=== PATIENT | male | born 1955 | race Caucasian/White ===

== ENCOUNTER 2020-03-02 09:55 | Day surgery (SDC) | payer OTHER ==
--- OUTSIDE RECORDS SUMMARY | 2020-03-02 10:04 | XMS REPORT | Continuity of Care Document ---
:1955 Author Organization [facility] t Address [address] [place] [address] Care Team Providers Name Role Phone Kacie VALERA Primary Care Physician [place] Attending Clinician Unavailable Antony Weber MD Attending Clinician Abigail Wiley MD Attending Clinician Payers Payer Name Policy Type Policy Effective Date Expiration Date Sour ce Number MEDICAREMEDICARE PART [id number] 2015 Ho rae Wade AND 00:00:00 [facility] [id number] [place] Problems This patient has no known problems. Allergies, Adverse Reactions, Alerts This patient has no known allergies or adverse reactions. Family History Family Member Diagnosis Comments Start Date Stop Date Source Natural brother Diabetes [facility] ethodist Natural father Heart disease [place] [facility] Natural father Stroke [facility] thodist Grandchild Kidney disease [facility] thodist Natural mother Cancer [place] Me thodist Social History Social Habit Start Date Stop Date Quantity Comments Source History of tobacco 1971-04-27 Current every day [place] use 00:00:00 smoker [facility] Sex Assigned At M [place] [facility] Exposure to Not sure [place] SARS-CoV-2 (event) Method ist Cigarettes smoked 2020-02-17 2020-02-17 [place] current (pack per 00:00:00 00:00:[address] day) - Reported Cigarette 2020-02-17 2020-02-17 [place] pack-years 00:00:00 00:00:00 [facility] Tobacco use and 2020-02-17 2020-02-17 Never used [facility] exposure 00:00:00 00:00:00 [facility] Alcohol intake 2020-02-17 2020-02-17 Ex-drinker [place] 00:00:00 00:00:00 (finding) [facility] Tobacco Comment 2020-02-17 2020-02-17 trying to quit [place] on 00:00:00 00:00:00 sometimes down to [facility] 1/4 pack a day then backslide Smoking Status Start Date Stop Date Source Current every day smoker 2020-02-17 00:00:00 Jadiel vásquez [facility] Medications This patient has no known medications. Vital Signs Vital Name Observation Time Observation Value Comments Source Systolic blood 2020-02-17 09:28:00 135 mm[Hg] [place] [facility] pressure Diastolic blood 2020-02-17 09:28:00 75 mm[Hg] [place] [facility] pressure Heart rate 2020-02-17 09:28:00 88 /min [place] [facility] Body height 2020-02-17 09:28:00 162.6 cm [place] [facility] Body weight 2020-02-17 09:28:00 63.504 kg [place] [facility] BMI 2020-02-17 09:28:00 24.03 kg/m2 [place] [facility] Procedures Procedure Date / Time Performed Performing Clinician [facility] e [facility] ABD/PELVIC EXTERNAL 2019-11-21 09:36:00 Casey Wiley on [facility] STUDY XR SPINE EXTERNAL 2019-11-16 13:32:00 Luis Angel Weber [place] [facility]ist STUDY Antony XR SPINE EXTERNAL 2019-11-16 13:29:47 Luis Angel Weber [place] [facility] STUDY Antony XR SPINE EXTERNAL 2019-11-16 11:08:00 Casey Wiley [place] [facility] STUDY XR SPINE EXTERNAL 2019-11-16 10:59:00 Casey Wiley [place] [facility] STUDY MRI SPINE EXTERNAL 2019-10-20 09:29:00 Casey Wiley ethodist STUDY MRI SPINE EXTERNAL 2019-10-20 09:07:00 Casey Wiley ethodist STUDY Plan of Care Planned Activity Planned Date Details Comments Source Future Scheduled 2005 COLONOSCOPY SCREENING [place] ra[place] [facility] Test 00:00:00 [code = COLONOSCOPY SCREENING] Future Scheduled 2005 SHINGLES VACCINES [place] [facility] Test 00:00:00 (#1) [code = SHINGLES VACCINES (#1)] Encounters Start End Encounter Admission Attending Care Care Encounter Source Date/Time Date/Time Type Type Clinicians Facility Department ID 2020-02-17 2020-02-17 Outpatient GEORGIE [facility] [id number] [place] 00:00:00 00:00:00 LUIS ANGEL [address] 2020-02-17 2020-02-17 Outpatient GEORGIE [facility] [id number] [place] 00:00:00 00:00:00 LUIS ANGEL [address] 2020-02-17 2020-02-17 Outpatient GEORGIE [facility] [id number] [place] 00:00:00 00:00:00 LUIS ANGEL [address] 2019-12-06 2019-12-06 Outpatient KAYLA, CASEY [facility] [id number] [place] 00:00:00 00:00:[address] 2019-12-06 2019-12-06 Outpatient KAYLA, CASEY [facility] [id number] [place] 00:00:00 00:00:[address] 2019-12-06 2019-12-06 Outpatient KAYLA, CASEY [facility] [id number] [place] 00:00:00 00:00:[address] 2019-12-06 2019-12-06 Outpatient KAYLA, CASEY [facility] [id number] [place] 00:00:00 00:00:[address] 2019-11-11 2019-11-11 Outpatient KAYLA, CASEY [facility] [id number] [place] 00:00:00 00:00:[address] 2019-11-11 2019-11-11 Outpatient KAYLA, CASEY [facility] [id number] [place] 00:00:00 00:00:[address] 2019-11-11 2019-11-11 Outpatient KAYLA, CASEY [facility] [id number] [place] 00:00:00 00:00:[address] 2019-11-11 2019-11-11 Outpatient KAYLA, CASEY [facility] [id number] [place] 00:00:00 00:00:[address] 2019-11-11 2019-11-11 Outpatient KAYLA, CASEY [facility] [id number] [place] 00:00:00 00:00:[address] Results Test Description Test Time Test Comments Results Result Sour e Comments XR Spine External 2020-02-17 This exam was not [facility] Study 13:32:12 acquired at a [facility] facility and has not been interpreted by a [facility] Provider. The exam was imported into our imaging system. CT Abd/Pelvic 2019-12-06 This exam was not [facility] External Study 13:41:[address] [facility] facility and has not been interpreted by a [facility] Provider. The exam was imported into our imaging system. MRI Spine 2019-11-11 This exam was not [place] External Study 11:48:39 acquired [address] [facility] facility and has not been interpreted by a [facility] Provider. The exam was imported into our imaging system.
--- OUTSIDE RECORDS SUMMARY | 2020-03-02 10:04 | XMS REPORT | Clinical Summary ---
:1955 Author Organization [facility] Address [address] [place] [address] Care Team Providers Name Role Phone MD Kacie Primary Care Provider Allergies Not on File Medications No known medications Active Problems No known active problems Encounters Date Type Specialty Care Team Description 02/20/2020 Orders Only Orthopedic Surgery Toribio Schafer 02/17/2020 Hospital Encounter Radiology Luis Angel Weber MD 02/17/2020 Hospital Encounter Radiology Luis Angel Weber MD 02/17/2020 Office Visit Orthopedic Surgery Luis Angel Weber Cervic algia (Primary Dx); MD Antony Chronic SI rosalio nt pain; Sacroiliac pain ; Lumbosacral rad iculitis 02/17/2020 Travel 01/13/2020 Travel 12/08/2019 Orders Only Casey Johnson, Spinal steno sis in MD cervical region (Primary Dx) 12/06/2019 Hospital Encounter Casey Garcia MD 12/06/2019 Hospital Encounter Casey Garcia MD 12/06/2019 Hospital Encounter Casey Garcia MD 12/06/2019 Office Visit Neurosurgery Casey Wiley, Cervical doc nosis of MD spine (Primary Dx) 12/06/2019 Travel 11/21/2019 Travel 11/11/2019 Hospital Encounter Casey Garcia MD 11/11/2019 Hospital Encounter Casey Garcia MD 11/11/2019 Hospital Encounter Casey Garcia MD 11/11/2019 Hospital Encounter Casey Garcia MD 11/11/2019 Office Visit Neurosurgery Casey Wiley, Cervical doc nosis of spine (Primary Dx); MD 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 ins. phyllis ia/mesh/mesh infection and re moval/colon resec ORTHOPEDIC SURGERY 08/25/2012 - 09/24/2012 [place] pic surgery due to torn labrum righ t hip SPINE SURGERY 11/05/2019 complete revisio n 01/2020 Medical History Medical History Date Comments Arthritis Asthma COPD (chronic obstructive pulmonary disease) (HCC) GERD (gastroesophageal reflux disease) Osteoporosis Stroke (HCC) GI bleed Family History Medical History Relation Name Comments Diabetes Brother Jamel Arriaga at 69 ye ars old Heart disease Father Zac Arriaga Jr A-fib Stroke Father Zac Arriaga Jr Acute CVA/ter mode Kidney disease Grandchild Zac Arriaga V acute IGA/kidne y transplant Cancer Mother Barbara Arriaga Acute liver/panc reatic Relation Name Status Comments Brother Jamel Arriaga Father Zac WadeEster Arriaga Jr Grandchild Zac Arriaga V Mother Barbara Arriaga Social History Tobacco Use Types Packs/Day Years Used Date Current Every Day Smoker Cigarettes 1 48 Sta rted: 04/27/1971 Smokeless Tobacco: Never Used Comments: trying to quit sometimes down to 1/4 pack a day then backslide Alcohol Use Drinks/Week oz/Week Comments Not Currently 0 Glasses of wine 0.0 0 Cans of beer 0 Shots of liquor 0 Standard drinks or equivalent Sex Assigned at Date Recorded Male 12/06/2019 4:09 PM CDT COVID-19 Exposure Response Date Recorded In the last month, have you been in contact with No / Unsure 02/17/2020 9:23 AM CDT someone who was confirmed or suspected to have Coronavirus / COVID-19? Last Filed Vital Signs Vital Sign Reading Time Taken Comments Blood Pressure 135/75 02/17/2020 9:28 AM CDT Pulse 88 02/17/2020 9:28 AM CDT Temperature - - Respiratory Rate - - Oxygen Saturation - - Inhaled Oxygen Concentration - - Weight 63.5 kg (140 lb) 02/17/2020 9:28 AM CDT Height 162.6 cm (5' 4") 02/17/2020 9:28 AM CDT Body Mass Index 24.03 02/17/2020 9:28 AM CDT Plan of Treatment Health Maintenance Due Date Last Done Comments COLONOSCOPY SCREENING 2005 SHINGLES VACCINES (#1) 2005 INFLUENZA VACCINE Completed 12/29/2019 Procedures Procedure Name Priority Date/Time Associated Diagnosis Comme nts CT ABD/PELVIC Routine 11/21/2019 9:36 AM Results for this EXTERNAL STUDY CDT procedure are in the results section. XR SPINE EXTERNAL Routine 11/16/2019 1:32 PM Res ults for this STUDY CDT procedure are i n the results section. XR SPINE EXTERNAL Routine 11/16/2019 1:29 PM Res ults for this STUDY CDT procedure are i n the results section. XR SPINE EXTERNAL Routine 11/16/2019 11:08 AM Res ults for this STUDY CDT procedure are i n the results section. XR SPINE EXTERNAL Routine 11/16/2019 10:59 AM Res ults for this STUDY CDT procedure are i n the results section. MRI SPINE EXTERNAL Routine 10/20/2019 9:29 AM Re sults for this STUDY CDT procedure are i n the results section. MRI SPINE EXTERNAL Routine 10/20/2019 9:07 AM Re sults for this STUDY CDT procedure are i n the results section. after 03/02/[address] Abd/Pelvic External Study (11/21/2019 9:36 AM CDT) Specimen Narrative Performed At This exam was not acquired at a Method[facility] t facility and has not been [facility] interpreted by a Religion Provider. T he exam was imported into our imaging system. Performing Organization Address City/[facility]/ZIP Code Phon e Number [facility] [address] [place] [address] XR Spine External Study (11/16/2019 1:32 PM CDT)Only the most recent of4 resultswithin the time period is included. Specimen Narrative Performed At This exam was not acquired at a Methodis t facility and has not been [facility] interpreted by a Religion Provider. T he exam was imported into our imaging system. Performing Organization Address City/State/ZIP Code Phon e Number [facility] [address] [place] [address] MRI Spine External Study (10/20/2019 9:29 AM CDT)Only the most recent of2 resultswithin the time period is included. Specimen Narrative Performed At This exam was not acquired at a Methodis t facility and has not been [facility] interpreted by a Religion Provider. T he exam was imported into our imaging system. Performing Organization Address City/State/ZIP Code Phon e Number [facility] [address] [place] [address] after 03/02/2019 Insurance Payer Benefit Plan / Subscriber ID Effective Dates Phone Addre ss Type Group MEDICARE MEDICARE PART A [id number] 2015-Present [place] B Advance Directives For more information, please contact: [phone] Type Date Recorded Patient Graduate Teaching Associate Explanati on Advance Directives, Living Will and Medical Power of It Application Administrator
[2020-03-02] MEDS ORDERED: Zoledronic Acid/Mannitol/Water 5 MG/100 ML INFUS.BOT IV ONE (10:15)
[2020-03-02 10:25] VITALS: BP 143/63; TEMP 98; O2SAT 97; BMI 24.0
== END 2020-03-02 10:55 | disposition home or self-care (01) ==
LOC: DS 09:55
PROVIDERS: ATTEND Internal Medicine
DX: M81.0 Age-related osteoporosis without current pathological fracture (principal); R13.10 Dysphagia, unspecified
CPT/HCPCS: 96365; J3489

== ENCOUNTER 2021-05-27 09:14 | Inpatient (IN) | payer OTHER ==
--- OUTSIDE RECORDS SUMMARY | 2021-05-27 09:16 | XMS REPORT | Continuity of Care Document ---
:1955 Author Organization [facility] t Address [address] [place] [address] Care Team Providers Name Role Phone Frank HOUSER Attending Clinician Unavailable GEORGIE Attending Clinician Unavailable KAYLA Attending Clinician Unavailable Payers Payer Name Policy Type Policy Number Effective Date Expiration Date S jenni MEDICARE PART A [id number] 2015 \T\ B 00:00:00 Problems This patient has no known problems. Allergies, Adverse Reactions, Alerts Allergy Allergy Status Severity Reaction(s) Onset Inactive Treating Comm ents Source Name Type Date Date Clinician NO KNOWN Drug Active [facility] ALLERGIE Class [facility] Medications This patient has no known medications. Procedures This patient has no known procedures. Encounters Start End Encounter Admission Attending Care Care Encounter Source Date/Time Date/Time Type Type Clinicians Facility Department ID 2020-07-09 2020-07-09 [id number] [facility] 14:50:00 14:50:00 KYARA [facility] 2020-02-17 2020-02-17 Outpatient [facility] [id number] [place] 00:00:00 00:00:[address] FRANKI [address] 2020-02-17 2020-02-17 [facility] [id number] [place] 00:00:00 00:00:00 FRANKI [address] 2020-02-17 2020-02-17 [facility] [id number] [place] 00:00:00 00:00:00 FRANKI [address] 2019-12-06 2019-12-06 Outpatient KAYLATHU BYNUM [facility] [id number] [place] 00:00:00 00:00:[address] 2019-12-06 2019-12-06 Outpatient KAYLA, THU [facility] [id number] [place] 00:00:00 00:00:[address] 2019-12-06 2019-12-06 Outpatient KAYLA, [facility] [id number] [place] 00:00:00 00:00:[address] 2019-12-06 2019-12-06 Outpatient KAYLA, THU [facility] [id number] [place] 00:00:00 00:00:[address] 2019-11-11 2019-11-11 Outpatient KAYLA, [facility] [id number] [place] 00:00:00 00:00:[address] 2019-11-11 2019-11-11 Outpatient KAYLA, [facility] [id number] [place] 00:00:00 00:00:[address] 2019-11-11 2019-11-11 Outpatient KAYLA, THU [facility] [id number] [place] 00:00:00 00:00:[address] 2019-11-11 2019-11-11 Outpatient KAYLA, [facility] [id number] [place] 00:00:00 00:00:[address] 2019-11-11 2019-11-11 Outpatient KAYLA, THU [facility] [id number] [place] 00:00:00 00:00:[address] Results This patient has no known results.
[2021-05-27] MEDS ORDERED: MORPHINE 4 MG/ML SYR ONE ×2 (09:34→16:06)
[2021-05-27] MEDS ORDERED: ONDANSETRON 4 MG/2 ML VIAL ONE ×2 (09:35→16:06)
[2021-05-27] MEDS ORDERED: NA CHLORIDE 0.9% 1,000 ML ONE (09:35)
[2021-05-27 09:53] LABS: Absolute Lymphocytes (CBC) 0.7 K/uL (0.7-4.9); Hematocrit 54.1 % (39.6-49.0); Lymphocytes % 4.5 % (15.3-44.8); MPV 9.4 fL (7.6-11.3)
[2021-05-27 10:10] LABS: Albumin 4.9 g/dL (3.4-5.0); Bilirubin Direct 0.2 mg/dL (0-0.2); Bilirubin Total 0.5 mg/dL (0.2-1.0); Potassium 4.4 mmol/L (3.5-5.1)
--- NOTE | 2021-05-27 11:23 | RAD REPORT ---
EXAM DESCRIPTION: CTAbdomen Pelvis W Contrast - 05/27/2021 11:08 am CLINICAL HISTORY: Abdominal pain. ABD PAIN COMPARISON: No comparisons TECHNIQUE: Biphasic CT imaging of the abdomen and pelvis was performed with 100 ml non-ionic IV cont rast. All CT scans are performed using dose optimization technique as appropriate and may include automated exposure control or mA/KV adjustment according to patient size. FINDINGS: The lung bases are clear.Small hiatal hernia. The liver, spleen, pancreas, adrenal glands and kidneys are within normal limits. 23 mm cyst is seen superior pole right kidney. Multiple dilated fluid-filled small bowel loops are present in the abdomen compatible with a moderate mechanical small-bowel obstruction. Appendectomy. No evidence of significant lymphadenopathy. Postsurgical lumbar spine is present. IMPRESSION: Moderate mechanical small-bowel obstruction is present.
--- NOTE | 2021-05-27 11:28 | RAD REPORT ---
EXAM DESCRIPTION: US - Abdomen Exam Limited - 05/27/2021 9:46 am CLINICAL HISTORY: ABD PAIN COMPARISON: No comparisons FINDINGS: The gallbladder demonstrates no gallstones. No pericholecystic fluid or gallbladder wall t hickening. The common bile duct is normal measuring 1-2 mm. The liver demonstrates no findings of intrahepatic biliary dilatation. IMPRESSION: Unremarkable examination.
--- NOTE | 2021-05-27 11:54 | ER ---
Nurse's Notes [facility] Name: Zac Arriaga III Age: 66 yrs Sex: Male : 1955 Arrival Date: 05/27/2021 Time: 09:15 Bed 16 Private MD: Solomon Hester V Diagnosis: Mechanical small bowel obstruction Presentation: 05/27 09:27 Chief complaint: Patient states: N/V and abd pain that began 2 days ago and became ss worse last night at 1800. HX of gastric ulcer and diverticulosis. Coronavirus screen: Client denies travel out of the [place] in the last 14 days. Ebola Screen: Patient denies exposure to infectious person. Patient denies travel to an Ebola-affected area in the 21 days before illness onset. Initial Sepsis Screen: Does the patient meet any 2 criteria? No. Patient's initial sepsis screen is negative. Does the patient have a suspected source of infection? No. Patient's initial sepsis screen is negative. Risk Assessment: Do you want to hurt yourself or someone else? Patient reports no desire to harm self or others. Onset of symptoms was May 25, 2021. 09:27 Method Of Arrival: Ambulatory ss 09:27 Acuity: BRANDON 3 ss Historical: - Allergies: 09:29 vancomycin; ss - PMHx: 09:29 Diverticulitis; Hypertensive disorder; ss - PSHx: 09:29 Colon resection; Colon resection; ss - Immunization history:: Client reports receiving the 2nd dose of the Covid vaccine. - Social history:: Smoking status: Patient reports the use of cigarette tobacco products, smokes one pack cigarettes per day. Screenin:00 Abuse screen: Denies threats or abuse. Denies injuries from another. Nutritional ww screening: No deficits noted. Tuberculosis screening: No symptoms or risk factors identified. Fall Risk None identified. Assessment: 10:00 General: Appears uncomfortable, Behavior is cooperative. Pain: Complains of pain in ww umbilical area. Neuro: Level of Consciousness is awake, alert, obeys commands, Oriented to person, place, time, situation, Speech is normal. Cardiovascular: Capillary refill < 3 seconds Patient's skin is warm and dry. Rhythm is regular. Respiratory: Airway is patent Respiratory effort is even, unlabored, Respiratory pattern is regular, symmetrical. GI: Abdomen is round Abdomen is tender to palpation in umbilical area, right upper quadrant and left upper quadrant. : No signs and/or symptoms were reported regarding the genitourinary system. EENT: No signs and/or symptoms were reported regarding the EENT system. Derm: Skin is intact, Skin is pink, warm \T\ dry. Musculoskeletal: Circulation, motion, and sensation intact. 11:15 Reassessment: Patient appears in no apparent distress at this time. No changes from ww previously documented assessment. Patient and/or family updated on plan of care and expected duration. Pain level reassessed. Patient is alert, oriented x 3, equal unlabored respirations, skin warm/dry/pink. 12:40 Reassessment: Patient appears in no apparent distress at this time. No changes from ww previously documented assessment. Patient and/or family updated on plan of care and expected duration. Pain level reassessed. Patient is alert, oriented x 3, equal unlabored respirations, skin warm/dry/pink. 13:25 Reassessment: Patient appears in no apparent distress at this time. No changes from ww previously documented assessment. Patient and/or family updated on plan of care and expected duration. Pain level reassessed. Patient is alert, oriented x 3, equal unlabored respirations, skin warm/dry/pink. 14:28 Reassessment: Patient appears in no apparent distress at this time. No changes from ww previously documented assessment. Patient and/or family updated on plan of care and expected duration. Pain level reassessed. Patient is alert, oriented x 3, equal unlabored respirations, skin warm/dry/pink. 15:58 Reassessment: Patient appears in no apparent distress at this time. No changes from ww previously documented assessment. Patient and/or family updated on plan of care and expected duration. Pain level reassessed. Patient is alert, oriented x 3, equal unlabored respirations, skin warm/dry/pink. report given to Marion. Going to room 204. Vital Signs: 09:27 BP 149 / 90; Pulse 106; Resp 19; Temp 97.0(TE); Pulse Ox 96% on R/A; Weight 62.6 kg; ss Pain 1/10; 10:00 BP 113 / 60; Pulse 60; Resp 18; Pulse Ox 97% on R/A; ww 14:29 BP 136 / 64; Pulse 65; Resp 18; Pulse Ox 98% on R/A; ww 16:18 BP 152 / 67; Pulse 67; Resp 17; Pulse Ox 98% on R/A; ww ED Course: 09:15 Patient arrived in ED. am2 09:16 Solomon Hester MD is Private Physician. am2 09:19 Marcela Mcarthur FNP-C is [facility]. kb 09:19 Diaz Zazueta MD is Attending Physician. kb 09:29 Triage completed. ss 09:29 Arm band placed on left wrist. ss 09:35 Rosy Heart, RN is Primary Nurse. ww 09:46 US Abdomen Limited In Process Unspecified. EDMS 10:00 Patient has correct armband on for positive identification. Placed in gown. Bed in low ww position. Call light in reach. Side rails up X 1. cattle killer on. Pulse ox on. NIBP on. 10:00 Initial lab(s) drawn, by me, sent to lab. Inserted saline lock: 20 gauge in left ww forearm, using aseptic technique. 11:07 CT Abd/Pelvis - IV Contrast Only In Process Unspecified. EDMS 11:53 Solomon Hester MD is Hospitalizing Provider. kb 12:41 NGT: inserted 12 Fr. via right nare. verified placement of air over stomach, verified ww return of gastric contents, Patient tolerated well. 15:58 No provider procedures requiring assistance completed. Patient admitted, IV remains in ww place. Administered Medications: 01:30 Drug: Mefoxin (cefOXitin) 1 grams Route: IVPB; Infused Over: 30 mins; Site: left ww forearm; 14:33 Follow up: Response: No adverse reaction; IV Status: Completed infusion ww 09:42 Drug: NS 0.9% 1000 ml Route: IV; Rate: 1000 ml; Site: left forearm; ww 14:33 Follow up: Response: No adverse reaction; IV Status: Completed infusion ww 09:45 Drug: morphine 4 mg Route: IVP; Site: left forearm; ww 14:33 Follow up: Response: No adverse reaction; Marked relief of symptoms ww 09:49 Drug: Zofran (Ondansetron) 4 mg Route: IVP; Site: left forearm; ww 14:33 Follow up: Response: No adverse reaction; Marked relief of symptoms ww 12:30 Drug: Flagyl (metroNIDAZOLE) 500 mg Volume: 100 ml; Route: IVPB; Rate: 200 ml/hr; ww Infused Over: 30 mins; Site: left forearm; 14:33 Follow up: Response: No adverse reaction; IV Status: Completed infusion ww Outcome: 11:54 Decision to Hospitalize by Provider. kb 15:57 Admitted to Med/surg accompanied by uriel, with chart, Report called to Izabella nguyen 15:57 Condition: stable 15:57 Instructed on the need for admit. 16:19 Patient left the ED. patrick Signatures: Dispatcher [employer] Marcela Neely, ELEVATOR OPERATOR FREIGHT-C CHAO-Chani Ogden, RN RN Deana Segal am2 Rosy Heart, RN RN patrick
--- NOTE | 2021-05-27 11:55 | EDPHYS ---
Physician Documentation [facility] Name: Zac Arriaga III Age: 66 yrs Sex: Male : 1955 Arrival Date: 05/27/2021 Time: 09:15 Bed 16 Private MD: Solomon Hester V ED Physician Diaz Zazueta HPI: 05/27 09:42 This 66 yrs old Male presents to ER via Ambulatory with complaints of Abdominal Pain, kb Nausea/Vomiting. 09:42 The patient presents with abdominal pain that is diffuse. Onset: The symptoms/episode kb began/occurred 2 day(s) ago, and became worse last night. The symptoms do not radiate. Associated signs and symptoms: Pertinent positives: nausea and vomiting, Pertinent negatives: diarrhea, fever. The symptoms are described as constant. Modifying factors: The symptoms are alleviated by nothing, the symptoms are aggravated by food. Severity of pain: At its worst the pain was moderate in the emergency department the pain is unchanged. The patient has not experienced similar symptoms in the past. The patient has not recently seen a physician. Historical: - Allergies: 09:29 vancomycin; ss - PMHx: 09:29 Diverticulitis; Hypertensive disorder; ss - PSHx: 09:29 Colon resection; Colon resection; ss - Immunization history:: Client reports receiving the 2nd dose of the Covid vaccine. - Social history:: Smoking status: Patient reports the use of cigarette tobacco products, smokes one pack cigarettes per day. ROS: 09:41 Constitutional: Negative for fever, chills, and weight loss. kb 09:41 Abdomen/GI: Positive for abdominal pain, nausea and vomiting, Negative for diarrhea. 09:41 All other systems are negative. Exam: 09:41 Constitutional: This is a well developed, well nourished patient who is awake, alert, kb and in no acute distress. Head/Face: Normocephalic, atraumatic. ENT: Moist Mucous membranes Cardiovascular: Regular rate and rhythm with a normal S1 and S2. No gallops, murmurs, or rubs. No pulse deficits. Respiratory: Respirations even and unlabored. No increased work of breathing. Talking in full sentences Skin: Warm, dry with normal turgor. Normal color. MS/ Extremity: Pulses equal, no cyanosis. Neurovascular intact. Full, normal range of motion. Neuro: Awake and alert, GCS 15, oriented to person, place, time, and situation. Moves all extremities. Normal gait. Psych: Awake, alert, with orientation to person, place and time. Behavior, mood, and affect are within normal limits. 09:41 Abdomen/GI: Inspection: abdomen appears normal, Bowel sounds: normal, in all quadrants, Palpation: soft, in all quadrants, mild abdominal tenderness, in all quadrants. Vital Signs: 09:27 BP 149 / 90; Pulse 106; Resp 19; Temp 97.0(TE); Pulse Ox 96% on R/A; Weight 62.6 kg; ss Pain 1/10; 10:00 BP 113 / 60; Pulse 60; Resp 18; Pulse Ox 97% on R/A; ww 14:29 BP 136 / 64; Pulse 65; Resp 18; Pulse Ox 98% on R/A; ww 16:18 BP 152 / 67; Pulse 67; Resp 17; Pulse Ox 98% on R/A; ww MDM: 09:19 Patient medically screened. kb 11:50 Data reviewed: vital signs, nurses notes. Data interpreted: Pulse oximetry: on room air kb is 96 %. Interpretation: normal. Counseling: I had a detailed discussion with the patient and/or guardian regarding: the historical points, exam findings, and any diagnostic results supporting the discharge/admit diagnosis, lab results, radiology results, the need for further work-up and treatment in the hospital. 11:53 Physician consultation: Solomon Hester MD was contacted at 11:53, regarding admission, to the medical/surgical unit. patient's condition, and will see patient in inpatient room. 11:53 Physician consultation: Gómez Alaniz MD was called at 11:53, paged. kb 13:02 Physician consultation: Gómez Alaniz MD paged at [phone]. kb 13:26 Physician consultation: Gómez Alaniz MD was contacted at 13:26, regarding consult, patient's condition, and will see patient in inpatient room. 13:37 Physician consultation: Gómez Alaniz MD in the emergency department to see patient at kb 13:38. 05/27 09:27 Order name: Basic Metabolic Panel; Complete Time: 10:12 kb 05/27 09:27 Order name: CBC with Diff; Complete Time: 12:42 kb 05/27 09:27 Order name: Hepatic Function; Complete Time: 10:12 kb 05/27 09:27 Order name: Lipase; Complete Time: 10:12 kb 05/27 09:27 Order name: COVID-19 SARS RT PCR (Document "Date of Onset" if Symptomatic); Complete kb Time: 10:37 05/27 12:28 Order name: CBC Smear Scan; Complete Time: 12:42 EDMS 05/27 09:27 Order name: US Abdomen Limited; Complete Time: 11:34 kb 05/27 09:27 Order name: CT Abd/Pelvis - IV Contrast Only; Complete Time: 11:34 kb 05/27 12:40 Order name: CXR XRAY ww 05/27 13:53 Order name: RAD; Complete Time: 14:04 EDMS 05/27 09:27 Order name: IV Saline Lock; Complete Time: 09:35 kb 05/27 09:27 Order name: Labs collected and sent; Complete Time: 09:35 kb 05/27 11:45 Order name: NG Tube; Complete Time: 12:36 kb Administered Medications: 01:30 Drug: Mefoxin (cefOXitin) 1 grams Route: IVPB; Infused Over: 30 mins; Site: left ww forearm; 14:33 Follow up: Response: No adverse reaction; IV Status: Completed infusion ww 09:42 Drug: NS 0.9% 1000 ml Route: IV; Rate: 1000 ml; Site: left forearm; ww 14:33 Follow up: Response: No adverse reaction; IV Status: Completed infusion ww 09:45 Drug: morphine 4 mg Route: IVP; Site: left forearm; ww 14:33 Follow up: Response: No adverse reaction; Marked relief of symptoms ww 09:49 Drug: Zofran (Ondansetron) 4 mg Route: IVP; Site: left forearm; ww 14:33 Follow up: Response: No adverse reaction; Marked relief of symptoms ww 12:30 Drug: Flagyl (metroNIDAZOLE) 500 mg Volume: 100 ml; Route: IVPB; Rate: 200 ml/hr; ww Infused Over: 30 mins; Site: left forearm; 14:33 Follow up: Response: No adverse reaction; IV Status: Completed infusion Disposition: 17:48 Co-signature as Attending Physician, Diaz Zazueta MD I agree with the assessment and rn plan of care. Attestation: The patient's history, exam findings, diagnostics, and a summary of any interventions or procedures was reviewed in detail with Marcela VALENTIN. Disposition Summary: 05/27/21 11:54 Hospitalization Ordered Hospitalization Status: Inpatient Admission kb Provider: Solomon Hester Location: Telemetry/MedSurg (Inpatient) kb Condition: Stable kb Problem: new kb Symptoms: are unchanged kb Bed/Room Type: Standard Room Assignment: 204(05/27/21 14:57) dw Diagnosis - Mechanical small bowel obstruction kb Forms: - Medication Reconciliation Form kb - SBAR form kb Signatures: Dispatcher [employer] EDMS Marcela Mcarthur FNP-C FNP-Ckb Woody, Diana, RN RN Diaz Sims MD MD rn Smirch, Shelby, RN RN ss Wood, Whitney, RN RN ww Corrections: (The following items were deleted from the chart) 14:57 11:54 kb dw
[2021-05-27] MEDS ORDERED: CEFOXITIN SODIUM 1 GM/VIAL ONE (12:07)
[2021-05-27] MEDS ORDERED: NA CHLORIDE 0.9% 50 ML ONE (12:07)
[2021-05-27] MEDS ORDERED: METRONIDAZOLE 500mg IVPB 500 MG/100 ML BAG IV ONE (12:07)
[2021-05-27] MEDS ORDERED: LIDOCAINE VISCOUS 2% SOLN 15 ML UDC ONE (12:16)
[2021-05-27 12:27] LABS: White Blood Cell Scan OK (OK)
[2021-05-27 12:28] LABS: Blood Morphology Comment NOT SEEN (NOT SEEN); Platelet Estimate ADEQ
--- NOTE | 2021-05-27 13:51 | RAD REPORT ---
EXAM DESCRIPTION: RAD - Chest Single View - 05/27/2021 1:43 pm CLINICAL HISTORY: ng tube placement COMPARISON: Chest Pa And Lat (2 Views) dated 09/22/2019 FINDINGS: The NG tube tip terminates overlying the proximal stomach. Suggest advancing by 5 cm for m ore optimal positioning. Partially imaged fusion hardware in the lumbar spine. IMPRESSION: NG tube tip overlies the proximal stomach. Suggest advancing by 5 cm for more optimal po sitioning.
[2021-05-27 15:54] VITALS: BMI 23.1
[2021-05-27] MEDS: MORPHINE 4 MG/ML SYR IV PRN (16:17)
[2021-05-27] MEDS: ONDANSETRON 4 MG/2 ML VIAL IV PRN (16:18)
[2021-05-27] MEDS: NA CHLORIDE 0.9% 1,000 ML IV SCH (17:17)
[2021-05-27] MEDS: METRONIDAZOLE 500mg IVPB 500 MG/100 ML BAG IV SCH (17:17)
[2021-05-27] MEDS: CEFOXITIN 1 GM in NA CHLORIDE 0.9% 50 ML IVPB SCH (18:20)
--- NOTE | 2021-05-27 19:46 | CON ---
Date of Consultation: 05/27/2021 Reason For Consultation: Nausea and vomiting. History Of Present Illness: The patient is a 66-year-old gentleman, who came to the emergency room w ith nausea, vomiting, and abdominal pain over the last couple of days and became worse. He did have a small amount of flatus early this morning. He has not had a bowel movement in some time. He has h ad previous episodes of partial bowel obstruction in the past. He has had multiple abdominal surgery for diverticulitis as well as incisional hernia as well as AP approach to back surgery a couple of t imes as well. He is awake, alert, in no acute distress at this time. He denies any diarrhea, consti pation, blood in his stool. No dysuria or hematuria. No sore throat, runny nose, cough, headaches, dizziness, chest pain, and no fever or chills. Review of Systems: Otherwise unremarkable. Past Medical History: Hypertension, diverticulitis. Past Surgical History: Colon resection for diverticulitis, multiple surgeries by AP approach for kai k surgery as well as multiple incisional hernia repair surgery. Allergies: INCLUDE VANCOMYCIN. Social History: The patient does smoke, has been counseled. Denies drinking alcohol. Family History: Noncontributory. Physical Examination: Vital Signs: Significant for blood pressure of 149/90, pulse rate of 106. He is afebrile. GENERAL: He is awake, alert, and oriented x3. Head and Neck: Cranial nerves 2 through 12 are grossly within normal limits. No neck masses. No JV D. Throat clear. Neck is supple. Chest: Clear. Heart: S1 and S2. Abdomen: Soft, nondistended. Hypoactive bowel sounds. Nontender. No peritonitis at all. Extremities: Adequately perfused. Nontender. Neuro: Nonfocal. Diagnostic Data: The patient had an ultrasound done, which showed unremarkable examination. He had a CT of the abdomen and pelvis, which showed moderate mechanical small bowel obstruction, multiple di lated fluid-filled small bowel loops are present in the abdomen compatible with moderate mechanical s mall bowel obstruction, appendectomy, no evidence of significant lymphadenopathy. His laboratory butch a reviewed. His white count is 14.8 with a left shift. Chemistry reviewed. He has renal insufficie ncy. BUN is 25, creatinine is 1.4. Glucose is slightly elevated at 174. Calcium is 10.6. Assessment: A 66-year-old gentleman with likely a partial small bowel obstruction. Recommendation: N.p.o. NG tube. IV fluids. IV antibiotics. Repeat abdominal x-ray tomorrow carlitos zavala. Serial abdominal exams. Plan of care discussed in detail with the patient. /MODL Voice ID: [id number] Report ID: [id number]
[2021-05-27] MEDS ORDERED: INFLUENZA VACCINE (for 6+ mo) 0.5 ML DOSE IMVAC ONE (20:00)
[2021-05-27] MEDS ORDERED: PNEUMOCOCCAL VACCINE 0.5 ML IMVAC ONE (20:00)
[2021-05-27] MEDS ORDERED: TIZANIDINE 4 MG TABLET PO PRN (20:20)
--- NOTE | 2021-05-27 20:20 | P.HP ---
Certification for Inpatient Patient admitted to: Inpatient With expected LOS: >2 Midnights Practitioner: I am a practitioner with admitting privileges, knowledge of patient current condition, hospital course, and medical plan of care. Services: Services provided to patient in accordance with Admission requirements found in Title 42 Section 412.3 of the Code of Federal Regulations Patient History Date of Service: 05/27/21 Reason for admission: ABDOMEN PAIN History of Present Illness: MR. [place] HAS RECURRENT BOWEL OBSTRUCTION WITH PREVIOUS HISTORY OF HTN, DJD, COPD HE COMES ONE MORE TIME WITH ABDOMNEN PAIN AND DISTENSION. HE HAS BOWEL OBSTRUCTION ON CT SCAN. I ASKED MANAGER FILE TO DO NGT WITH LIS AND CONSULT SURGEON. HE MAY RECOVER WITHOUT SURGERY. Allergies vancomycin Allergy (Verified 03/02/20 10:53) Anaphylaxis Home medications list reviewed: Yes Home Medications: ALPRAZolam [Xanax*] 0.5 mg PO BEDTIME PRN 05/27/21 Aspirin [Aspirin EC] 81 mg PO DAILY 05/27/21 Atorvastatin Calcium [Lipitor*] 20 mg PO DAILY AFTER SUPPER 05/27/21 Calcium Carb/Vitamin D3/Vit K1 [Calcium + D Soft Chewable Tab] 1 tab PO DAILY 05/27/21 Famotidine [Pepcid*] 20 mg PO DAILY 05/27/21 Fluticasone Propionate [Flonase Allergy Relief] 1 spray DARYN DAILY 05/27/21 Gabapentin [Neurontin*] 100 mg PO DAILY 05/27/21 Gabapentin [Neurontin*] 200 mg PO BEDTIME 05/27/21 Melatonin 5 mg PO BEDTIME 05/27/21 Multivit-Min/Folic Acid/Vit K1 [Multi For Him Softgel] 1 cap PO DAILY 05/27/21 Tizanidine [Zanaflex*] 4 mg PO BEDTIME PRN 05/27/21 Ubidecarenone [Co Q-10] 10 mg PO DAILY 05/27/21 Venlafaxine HCl [Venlafaxine HCl ER] 37.5 mg PO DAILY 05/27/21 - Past Medical/Surgical History Has patient received pneumonia vaccine in the past: No Diabetic: No -: HTN -: COPD -: diverticulitis/diverticulosis -: gastric ulcers -: colon resection - Social History Smoking Status: Current every day smoker Alcohol use: No CD- Drugs: No Caffeine use: Yes Place of Residence: Home Review of Systems 10-point ROS is otherwise unremarkable General: Weakness, Malaise Physical Examination - Vital Signs Temperature: 97.4 F Blood Pressure: 152/67 Pulse: 67 Respirations: 17 Pulse Ox (%): 98 - Physical Exam General: Oriented x3, Mild distress HEENT: Atraumatic, PERRLA, Mucous membr. moist/pink, EOMI, Sclerae nonicteric Neck: Supple, 2+ carotid pulse no bruit, No LAD, Without JVD or thyroid abnormality Respiratory: Clear to auscultation bilaterally, Normal air movement Cardiovascular: Regular rate/rhythm, Normal S1 S2 Gastrointestinal: Hyperactive, Distended, Tenderness Musculoskeletal: No tenderness Integumentary: No rashes Neurological: Normal gait, Normal speech, Normal strength at 5/5 x4 extr, Normal tone, Normal affect Lymphatics: No axilla or inguinal lymphadenopathy - Studies Laboratory Data (last 24 hrs) 05/27/21 09:32: WBC 14.80 H, Hgb 17.6, Hct 54.1 H, Plt Count 255 05/27/21 09:32: Sodium 134 L, Potassium 4.4, BUN 25 H, Creatinine 1.40 H, Glucose 174 H, Total Bilirubin 0.5, AST 18, ALT 32, Alkaline Phosphatase 123 H, Lipase 58 L Assessment and Plan - Problems (Diagnosis) (1) Small bowel obstruction Current Visit: Yes Status: Acute Plan: HE HAS RECURRENT ISSUE. NGT WITH LIS DAILY X RAY. DR BABCOCK CONSULT. (2) COPD (chronic obstructive pulmonary disease) Current Visit: Yes Status: Chronic Plan: CURRENT STABLE. NEBS PRN. SMOKES AND NOT ABLE TO QUIT DESPITE MANY TRIALS AND MEDS. (3) Smoker Current Visit: Yes Status: Acute (4) DJD (degenerative joint disease) Current Visit: Yes Status: Acute - Advance Directives Does patient have a Living Will: No Does patient have a Durable POA for Healthcare: No
[2021-05-27] MEDS: ALPRAZOLAM 0.5 MG TABLET PO PRN (21:38)
[2021-05-27] MEDS: MELATONIN 5 MG TABLET PO SCH (21:38)
[2021-05-27] MEDS: GABAPENTIN 100 MG CAP PO SCH (21:38)
[2021-05-28] MEDS: METRONIDAZOLE 500mg IVPB 500 MG/100 ML BAG IV SCH ×3 (01:43→16:45)
[2021-05-28] MEDS: CEFOXITIN 1 GM in NA CHLORIDE 0.9% 50 ML IVPB SCH ×5 (01:43→23:15)
[2021-05-28] MEDS: NA CHLORIDE 0.9% 1,000 ML IV SCH ×3 (02:42→21:43)
[2021-05-28] MEDS: MORPHINE 4 MG/ML SYR IV PRN (03:37)
[2021-05-28] MEDS: ONDANSETRON 4 MG/2 ML VIAL IV PRN (03:37)
[2021-05-28 08:08] LABS: Absolute Lymphocytes (CBC) 0.8 K/uL (0.7-4.9); Hematocrit 43.4 % (39.6-49.0); Lymphocytes % 17.4 % (15.3-44.8); MPV 9.2 fL (7.6-11.3); RBC Red Blood Cell Count 4.91 M/uL (4.33-5.43)
[2021-05-28 08:49] LABS: BUN Blood Urea Nitrogen 23 mg/dL (7-18); Bicarbonate 24 mmol/L (21-32); Glucose Level 118 mg/dL (74-106); Potassium 4.5 mmol/L (3.5-5.1); Sodium Level 139 mmol/L (136-145)
[2021-05-28 08:59] LABS: Blood Morphology Comment NOT SEEN (NOT SEEN); Platelet Estimate ADEQ
--- NOTE | 2021-05-28 09:07 | PN ---
Date of Progress Note: 05/28/2021 Subjective: The patient is awake, alert. Complaining of occasional crampy pain. No flatus and no b owel movement. Vitals are stable. He is afebrile. NG tube has put out less than 30 cc of the fluid . Objective: His abdomen is slightly distended. Hypoactive bowel sounds. No peritonitis. Minimal ten derness. Laboratory Data: Reviewed. White count is normal. He has abdominal x-ray. Chemistry is pending. Assessment: Small bowel obstruction. Recommendations: Continue n.p.o., NG tube, IV fluids. The patient can have a few ice chips. Encour age ambulation. We will check the x-ray and make further recommendation. Should there be no improve ment, the patient may benefit from a small bowel series and follow this patient closely with serial a bdominal exam as well. /MODL Voice ID: [id number] Report ID: [id number]
[2021-05-28] MEDS: GABAPENTIN 100 MG CAP PO SCH ×2 (09:48→21:27)
[2021-05-28] MEDS: ENOXAPARIN 40 MG/0.4 ML SQ SCH (09:48)
[2021-05-28] MEDS: VENLAFAXINE HCL XR 37.5MG CAP PO SCH (09:53)
--- NOTE | 2021-05-28 12:34 | RAD REPORT ---
EXAM DESCRIPTION: RAD - Abdomen W Erect - 05/28/2021 12:27 pm CLINICAL HISTORY: SBO F/U COMPARISON: Abdomen Pelvis W Contrast dated 05/27/2021 FINDINGS: Centrally dilated small bowel with air-fluid levels consistent with continued presence of a small bowel obstruction. No acute osseous abnormality.Visualized lungs are unremarkable.No abnormal calcifications. Fusion hardware in the lower spine. Contrast is present within the bladder. IMPRESSION: Small bowel obstruction grossly similar to the CT from 05/27/2021.
--- NOTE | 2021-05-28 15:26 | RAD REPORT ---
EXAM DESCRIPTION: RAD - Abdomen 1 View (KUB) - 05/28/2021 3:17 pm CLINICAL HISTORY: ngt placement Pain COMPARISON: Abdomen W Erect dated 05/28/2021 FINDINGS: Tip of the enteric tube is just entering the stomach. Recommend advancing the tube 8-10 ce ntimeters.
[2021-05-28] MEDS: ATORVASTATIN 20 MG TAB PO SCH (16:46)
--- NOTE | 2021-05-28 20:52 | P.PN ---
Subjective Date of Service: 05/28/21 Chief Complaint: ABDOMEN PAIN Subjective: No new changes HE IS STILL THE SAME. HE IS PASSING SOME GAS FROM BELOW. NGT CAME OUT ACCIDENTALLY. HE IS STILL NOT BETTER SO I ASKED NURSES TO PUT IT BACK IN. Review of Systems 10-point ROS is otherwise unremarkable General: Weakness, Malaise Gastrointestinal: Abdominal Pain, Distention Physical Examination - Vital Signs Temperature: 98.8 F Blood Pressure: 111/72 Pulse: 80 Respirations: 16 Pulse Ox (%): 95 - Physical Exam General: Oriented x3, Cachectic, Mild distress, Moderate distress HEENT: Atraumatic, PERRLA, EOMI Neck: Supple, JVD not distended Respiratory: Clear to auscultation bilaterally, Normal air movement Cardiovascular: Regular rate/rhythm, Normal S1 S2 Gastrointestinal: Distended Musculoskeletal: No tenderness Integumentary: No rashes Neurological: Normal speech, Normal tone, Normal affect Lymphatics: No axilla or inguinal lymphadenopathy - Studies Medications List Reviewed: Yes Assessment And Plan - Current Problems (Diagnosis) (1) Small bowel obstruction Current Visit: Yes Status: Acute Plan: HE HAS RECURRENT ISSUE. NGT WITH LIS DAILY X RAY. DR BABCOCK CONSULT. CONT NGT LIS. STABLE. (2) COPD (chronic obstructive pulmonary disease) Current Visit: Yes Status: Chronic Plan: CURRENT STABLE. NEBS PRN. SMOKES AND NOT ABLE TO QUIT DESPITE MANY TRIALS AND MEDS. (3) Smoker Current Visit: Yes Status: Acute (4) DJD (degenerative joint disease) Current Visit: Yes Status: Acute
[2021-05-28] MEDS: ALPRAZOLAM 0.5 MG TABLET PO PRN (21:26)
[2021-05-28] MEDS: MELATONIN 5 MG TABLET PO SCH (21:26)
[2021-05-29] MEDS: METRONIDAZOLE 500mg IVPB 500 MG/100 ML BAG IV SCH ×3 (00:16→19:45)
[2021-05-29] MEDS: CEFOXITIN 1 GM in NA CHLORIDE 0.9% 50 ML IVPB SCH ×3 (05:18→16:28)
[2021-05-29] MEDS: ONDANSETRON 4 MG/2 ML VIAL IV PRN ×3 (05:19→22:55)
[2021-05-29] MEDS: MORPHINE 4 MG/ML SYR IV PRN ×2 (05:56→11:56)
[2021-05-29] MEDS: NA CHLORIDE 0.9% 1,000 ML IV SCH ×2 (08:01→18:01)
[2021-05-29] MEDS: VENLAFAXINE HCL XR 37.5MG CAP PO SCH (09:00)
[2021-05-29] MEDS: GABAPENTIN 100 MG CAP PO SCH (09:00)
[2021-05-29] MEDS: ENOXAPARIN 40 MG/0.4 ML SQ SCH (11:50)
--- NOTE | 2021-05-29 14:13 | RAD REPORT ---
EXAM DESCRIPTION: RAD - Abdomen Single View - 05/29/2021 1:59 pm CLINICAL HISTORY: Verify NGT placement COMPARISON: Small Bowel Series dated 05/29/2021; Abdomen 1 View (KUB) dated 05/28/2021 FINDINGS: NG/OG tube has been placed. Tip of the tubing is in the proximal stomach which is mostly d ecompressed. Side port of the tubing is at the GE junction. No free air or pneumatosis seen. Multiple dilated small bowel loops are present. IMPRESSION: NG/OG tube placement. Tip is in the proximal stomach with the side port of the tubing at the GE junction.
--- NOTE | 2021-05-29 15:24 | RAD REPORT ---
EXAM DESCRIPTION: RAD - Small Bowel Series - 05/29/2021 3:12 pm CLINICAL HISTORY: sbo COMPARISON: Abdomen Pelvis W Contrast dated 05/27/2021 FINDINGS: Senior Accountant Analyst film shows multiple dilated small bowel loops matching the May [address] CT study. No f ree air or pneumatosis seen. No suspicious calcifications. Gastric size and mucosal fold pattern are normal. No significant delay in transit of contrast into th e small bowel. The small bowel decompressed over the course of the examination. Numerous dilated smal l bowel loops are present extending to the low abdomen overlying the sacral ala. This corresponds to the same area of obstruction and abrupt transition seen on the CT study. Adhesion is most likely at t his location. Plain film findings do not suspect a mass lesion. There was no significant movement of the contrast column up to 6 hours after initial contrast administration. Based on the slow transit an d the patient's clinical status, it was elected to take the patient to the OR. No further imaging was performed on this patient. IMPRESSION: Mechanical small bowel obstruction with transition point in the low midline abdomen near the umbilicus. No extravasation of contrast, free air or pneumatosis. Exam was carried out to 6 hours after contrast administration with no further movement beyond the exp ected point of obstruction. Based on this absence of movement and the patient's clinical status, [facility] to take the patient to the OR.
[2021-05-29] MEDS ORDERED: Ringers Lactate 1,000 ML IV ONE ×3 (15:36→18:20)
[2021-05-29] MEDS ORDERED: SUCCINYLCHOLINE 20 MG/ML (10 ML) IV ONE (15:58)
[2021-05-29] MEDS ORDERED: FENTANYL CITR 250 MCG/5 ML ONE (16:01)
[2021-05-29] MEDS ORDERED: ROCURONIUM 50 MG/5 ML VIAL IV ONE (16:01)
[2021-05-29] MEDS ORDERED: propofoL 200 MG/20 ML VIAL IV ONE (16:01)
--- NOTE | 2021-05-29 16:18 | PN ---
Date of Progress Note: 05/29/2021 Subjective: The patient had a small bowel series that was started this morning where it got to the four to six hour point, the contrast reached the proximal ileum without any progression. The patient became more distended and complaining of more pain. His stomach is decompressed on the x-rays. Objective: Vital Signs: Stable. He is afebrile. Abdomen: Distended. Hypoactive bowel sounds and diffuse tenderness with rebound. No rigidity or guarding. Assessment: Small bowel obstruction likely complete. Recommendation: As the patient is clinically worsening and small bowel series does not show any progression of the contrast, I discussed with the patient the risks, benefits, and alternatives to exploratory laparotomy and possible bowel resection. He understood the benefits, alternatives, and risks and he agreed to the procedure. Plan of care discussed with Dr. Hu as well as Dr. Hester. CAMACHO/SOREN Voice ID: [id number] Report ID: [id number] [facility]ITALBl[facility]
[2021-05-29] MEDS ORDERED: GLYCOPYRROLATE 0.2 MG/ML SYR ONE ×2 (17:03→17:37)
[2021-05-29] MEDS: ATORVASTATIN 20 MG TAB PO SCH (17:30)
[2021-05-29] MEDS ORDERED: dexAMETHasone 10 MG/ML VIAL ONE (17:35)
[2021-05-29] MEDS ORDERED: ONDANSETRON 4 MG/2 ML VIAL ONE ×2 (17:36→18:22)
[2021-05-29] MEDS ORDERED: NEOSTIGMINE 1 MG/ML -5 ML ONE (17:37)
--- NOTE | 2021-05-29 18:05 | P.PN ---
Subjective Date of Service: 05/29/21 Chief Complaint: ABDOMEN PAIN Subjective: Worsening HE IS STILL THE SAME. HE IS PASSING SOME GAS FROM BELOW. NGT CAME OUT ACCIDENTALLY. HE IS STILL NOT BETTER SO I ASKED NURSES TO PUT IT BACK IN. NGT WITH LIS DID NOT WORK NGT CAME OUT TWICE. DIFFICULT TO INSERT EVEN AFTER INSERTION HE KEPT ON HAVING ABDOMEN DISTENSION. DR. BABCOCK WILL TAKE HIM FOR SURGERY TODAY. Physical Examination - Vital Signs Temperature: 97.7 F Blood Pressure: 126/65 Pulse: 97 Respirations: 18 Pulse Ox (%): 96 - Physical Exam General: Cachectic, Moderate distress HEENT: Atraumatic, PERRLA, EOMI Neck: Supple, JVD not distended Respiratory: Clear to auscultation bilaterally, Normal air movement Cardiovascular: Regular rate/rhythm, Normal S1 S2 Gastrointestinal: Normal bowel sounds, No tenderness, Distended Musculoskeletal: No tenderness Integumentary: No rashes Neurological: Normal speech, Normal tone, Normal affect Lymphatics: No axilla or inguinal lymphadenopathy - Studies Medications List Reviewed: Yes Assessment And Plan - Current Problems (Diagnosis) (1) Small bowel obstruction Current Visit: Yes Status: Acute Plan: HE HAS RECURRENT ISSUE. NGT WITH LIS DAILY X RAY. DR ABBCOCK CONSULT. FAILED CONSERVATIVE RX SURGERY TODAY. (2) COPD (chronic obstructive pulmonary disease) Current Visit: Yes Status: Chronic Plan: CURRENT STABLE. NEBS PRN. SMOKES AND NOT ABLE TO QUIT DESPITE MANY TRIALS AND MEDS. (3) Smoker Current Visit: Yes Status: Acute (4) DJD (degenerative joint disease) Current Visit: Yes Status: Acute
--- NOTE | 2021-05-29 18:10 | P.OP ---
Furrier Shop Supervisor: Castro ARMAS Preoperative diagnosis: SBO Postoperative diagnosis: same with extensive adhesions and small bowel stricture Primary procedure: Exp Lap, SB Resection and Extensive PRESTON Anesthesia: General Estimated blood loss: min Specimen: Small Bowel Findings: as above Complications: None Drain(s): Nasogastric, Urinary catheter Transferred to: Recovery Room Condition: Good
[2021-05-29] MEDS: HYDROMORPHONE HCL 1 MG/ML INJ ONE ×3 (18:22→18:32)
[2021-05-29] MEDS ORDERED: SODIUM CHLORIDE 0.9% 10ML INJ IV PRN (18:26)
[2021-05-29] MEDS: HYDROMORPHONE HCL 1 MG/ML INJ IV PRN ×2 (18:37→22:55)
[2021-05-29] MEDS: FENTANYL CITR 100 MCG/2 ML ONE ×2 (18:44→18:50)
[2021-05-29] MEDS: PROMETHAZINE INJ 25 MG/ML AMP ONE ×2 (19:03→19:08)
[2021-05-29] MEDS: MEPERIDINE HCL 50 MG/ML ONE ×2 (19:03→19:05)
[2021-05-29] MEDS ORDERED: MEPERIDINE HCL 25 MG/ML SYR ONE (19:04)
[2021-05-29] MEDS ORDERED: HYDROMORPHONE/PCA 10 MG/50 ML SYR IV PRN (19:19)
[2021-05-29] MEDS ORDERED: NALOXONE 0.4 MG/ML VIAL IV PRN (19:19)
[2021-05-29] MEDS ORDERED: NA CHLORIDE 0.9% 1,000 ML ONE (19:23)
[2021-05-29] MEDS ORDERED: NA CHLORIDE 0.9% 250 ML IV ONE (23:30)
[2021-05-30] MEDS: CEFOXITIN 1 GM in NA CHLORIDE 0.9% 50 ML IVPB SCH ×5 (00:22→23:51)
[2021-05-30] MEDS: HYDROMORPHONE HCL 1 MG/ML INJ IV PRN ×6 (00:54→22:45)
[2021-05-30] MEDS: METRONIDAZOLE 500mg IVPB 500 MG/100 ML BAG IV SCH ×3 (00:54→18:00)
--- NOTE | 2021-05-30 02:30 | OP ---
Date of Procedure: 05/29/2021 Surgeon: Gómez Alaniz MD Hearing Aid Mechanic: CHANDA Guadarrama Preoperative Diagnosis: Small bowel obstruction. 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 Procedure Performed: Exploratory laparotomy, extensive lysis of adhesion, and small bowel resection. Estimated Blood Loss: Minimal. Specimens: Small bowel. Findings: As above. Anesthesia: General. Complications: None. Disposition: The patient tolerated the procedure in stable condition and taken to Recovery in good g eneral condition. Description Of Procedure: The patient was brought to the OR and placed in supine position. General anesthesia begun. The patient was prepped and draped in usual sterile fashion. Then, a 10 blade use d to make a generous epigastric midline incision extending down to the umbilicus and just beyond towa rds the pubis. Subcutaneous tissue divided. Fascia identified and divided and then peritoneal cavit y entered. Upon entering the peritoneal cavity, there was small bowel that was stuck right below the umbilicus, extensive hard rock adhesions. Careful sharp and blunt dissection was utilized to free t he small bowel. Upon examination of the bowel after it was freed, it was noted that there was a stri cture present in the small bowel secondary to extensive adhesions. At this time, I decided to make a small bowel resection to bypass the stricture. This was done with the Endo-BATSHEVA stapling device and then LigaSure was used for the mesentery and then the standard antimesenteric anastomosis created wit h BATSHEVA stapling device as well as a TA-60. 3-0 silk was used to take the pressure off the anastomosis and also 3-0 silk was used to close the mesenteric defect. Specimen was sent to Pathology and then the entire abdomen was thoroughly irrigated until effluent was clear. There was no evidence of bleed ing or bowel injury appreciated. Patient had small hard stool throughout the colon, but there were n o masses palpated. The remainder of the small bowel proximally and distally to the anastomosis was w ithin normal limits. It was dilated proximally all the way to the ligament of Treitz. The liver, GE junction, stomach, duodenal sweep were all within normal limit. NG-tube was in the proper place. T ook approximately an hour of lysis of adhesions during this case. After counts were correct, the mid line fascia was closed with running #2 nylon suture. Wound irrigated, bleeding controlled with caute ry, and then 3-0 chromic used to loosely approximate the subcutaneous tissue and staple used to close skin. Sterile dressing applied. Patient was awakened and taken to Recovery in good general conditi on. /MODL Voice ID: [id number] Report ID: [id number]
[2021-05-30] MEDS: NA CHLORIDE 0.9% 1,000 ML IV SCH ×3 (04:01→18:01)
[2021-05-30 05:10] LABS: Absolute Lymphocytes (CBC) 0.2 K/uL (0.7-4.9); Hematocrit 44.9 % (39.6-49.0); Lymphocytes % 3.2 % (15.3-44.8); MPV 9.3 fL (7.6-11.3); RBC Red Blood Cell Count 5.08 M/uL (4.33-5.43)
[2021-05-30 05:46] LABS: Phosphorus 1.8 mg/dL (2.5-4.9); Potassium 4.1 mmol/L (3.5-5.1)
[2021-05-30] MEDS: ENOXAPARIN 40 MG/0.4 ML SQ SCH (08:15)
[2021-05-30] MEDS ORDERED: ENOXAPARIN 40 MG/0.4 ML SQ SCH (09:00)
[2021-05-30] MEDS ORDERED: PANTOPRAZOLE 40 MG INJ IVP SCH (09:00)
[2021-05-30] MEDS ORDERED: NA CHLORIDE 0.9% 250 ML IV ONE (09:33)
[2021-05-30 15:35] LABS: Urine Appearance TURBID (Clear); Urine Blood 3+ (Negative); Urine Color Red (Yellow); Urine Glucose NEGATIVE (Negative); Urine Protein 2+ (Negative); Urine Specific Gravity >=1.030 (1.005-1.030)
[2021-05-30 15:45] LABS: Urine Bilirubin 3+ (Negative)
[2021-05-30 15:46] LABS: Urine Microscopic Reflex ORDER UMIC
[2021-05-30 15:50] LABS: Urine Bacteria 20-50 /HPF (NONE SEEN); Urine Mucus 1+ /HPF (NONE SEEN); Urine RBC >50 /HPF (NONE SEEN)
--- NOTE | 2021-05-30 16:10 | PN ---
Date of Progress Note: 05/30/2021 Subjective: The patient is awake and alert. Pain is controlled with parenteral pain management. Objective: Vital Signs: Stable. Heart rate is slightly elevated. He is afebrile. Abdomen: Soft, nondistended, hypoactive bowel sounds, and just incisional tenderness Laboratory Data: Reviewed. His H and H are 15 and 44.9 this morning. Please note that the patient's nurse contacted me about blood in the urine. However, the patient may have caused some trauma to the Gann as he was standing with the Gann hanging dependently from the penis. UA has been ordered and a repeat H and H are 14.6 and 45. His chemistry reviewed. Electroly te protocol is in place. Assessment: Status post small bowel resection for small bowel obstruction secondary to extensive adh esions and stricture. Recommendation: Continue n.p.o., NG tube, IV fluid boluses as needed to maintain adequate urine outp ut. Will check the UA as well and monitor the H and H. IV antibiotics as ordered. Encourage ambula tion, incentive spirometry, and DVT prophylaxis. /MODL Voice ID: [id number] Report ID: [id number]
--- NOTE | 2021-05-30 21:16 | P.PN ---
Subjective Date of Service: 05/30/21 Chief Complaint: ABDOMEN PAIN Subjective: Improving HE IS STILL THE SAME. HE IS PASSING SOME GAS FROM BELOW. NGT CAME OUT ACCIDENTALLY. HE IS STILL NOT BETTER SO I ASKED NURSES TO PUT IT BACK IN. NGT WITH LIS DID NOT WORK NGT CAME OUT TWICE. DIFFICULT TO INSERT EVEN AFTER INSERTION HE KEPT ON HAVING ABDOMEN DISTENSION. DR. BABCOCK WILL TAKE HIM FOR SURGERY TODAY. SP SURGERY DAY 1. DOING WELL LOW URINE OUTPUT HEMATURIA FROM MOVING AROUND WITH GAINES. WHEN I SAW HIM THIS AM HE SQUATTING IN THE BED, UNCOMFORTABLE. Review of Systems 10-point ROS is otherwise unremarkable Physical Examination - Vital Signs Temperature: 97.1 F Blood Pressure: 129/65 Pulse: 92 Respirations: 20 Pulse Ox (%): 98 - Physical Exam General: Cachectic, Moderate distress HEENT: Atraumatic, PERRLA, EOMI Neck: Supple, JVD not distended Respiratory: Clear to auscultation bilaterally, Normal air movement Cardiovascular: Regular rate/rhythm, Normal S1 S2 Gastrointestinal: Normal bowel sounds, No tenderness Musculoskeletal: No tenderness Integumentary: No rashes Neurological: Normal speech, Normal tone, Normal affect Lymphatics: No axilla or inguinal lymphadenopathy - Studies Medications List Reviewed: Yes Assessment And Plan - Current Problems (Diagnosis) (1) Small bowel obstruction Current Visit: Yes Status: Acute Plan: HE HAS RECURRENT ISSUE. NGT WITH LIS DAILY X RAY. DR BABCOCK CONSULT. FAILED CONSERVATIVE RX SURGERY TODAY. SP SURGERY DOING WELL STABLE. IV FLUIDS FOR LOW OUTPUT. (2) COPD (chronic obstructive pulmonary disease) Current Visit: Yes Status: Chronic Plan: CURRENT STABLE. NEBS PRN. SMOKES AND NOT ABLE TO QUIT DESPITE MANY TRIALS AND MEDS. Qualifiers: COPD type: unspecified COPD Qualified Code(s): J44.9 - Chronic obstructive pulmonary disease, unspecified (3) Smoker Current Visit: Yes Status: Acute (4) DJD (degenerative joint disease) Current Visit: Yes Status: Acute (5) Hematuria Current Visit: Yes Status: Acute Plan: MAINLY FROM GAINES DAMAGE I DON'T SUSPECT ANYTHING ELSE WILL FU AFTER REMOVAL OF GAINES.
[2021-05-31] MEDS: NA CHLORIDE 0.9% 1,000 ML IV SCH ×4 (00:01→20:01)
[2021-05-31] MEDS: METRONIDAZOLE 500mg IVPB 500 MG/100 ML BAG IV SCH ×3 (01:00→18:02)
[2021-05-31] MEDS: CEFOXITIN 1 GM in NA CHLORIDE 0.9% 50 ML IVPB SCH ×4 (06:00→23:31)
[2021-05-31] MEDS: ONDANSETRON 4 MG/2 ML VIAL IV PRN (06:22)
[2021-05-31] MEDS: HYDROMORPHONE HCL 1 MG/ML INJ IV PRN (06:23)
--- NOTE | 2021-05-31 08:06 | PN ---
Date of Progress Note: 05/31/2021 Subjective: The patient is awake and alert, has adequate urine output. He is complaining of some in cisional pain and anxiety. His laboratory data is reviewed and his H and H were stable when it was r epeated yesterday afternoon. His NG tube output has minimized. His abdomen is soft. Hypoactive bowel sounds. Nontender. Wound is clean, dry, and intact. Assessment: Status post small bowel resection for small-bowel obstruction secondary to extensive adh esions and stricture. Recommendations: Okay to discontinue Gann. The patient will be transferred to the floor. Continue n.p.o., NG tube. We will go ahead and give the patient Ativan, he normally takes Xanax at home for anxiety. The patient is clinically stable and doing well. /MODL Voice ID: [id number] Report ID: [id number]
[2021-05-31] MEDS ORDERED: SODIUM CHLORIDE 0.9% 10ML INJ IV PRN (08:33)
[2021-05-31 08:55] LABS: Absolute Lymphocytes (CBC) 0.4 K/uL (0.7-4.9); Hematocrit 40.3 % (39.6-49.0); Lymphocytes % 5.1 % (15.3-44.8); RBC Red Blood Cell Count 4.55 M/uL (4.33-5.43)
[2021-05-31] MEDS ORDERED: PANTOPRAZOLE 40 MG INJ IVP SCH (09:00)
[2021-05-31 09:06] LABS: Phosphorus 1.2 mg/dL (2.5-4.9)
[2021-05-31] MEDS: PANTOPRAZOLE 40 MG INJ IVP SCH ×2 (09:30→21:34)
[2021-05-31] MEDS: ENOXAPARIN 40 MG/0.4 ML SQ SCH (09:30)
[2021-05-31] MEDS: LORazepam 2 MG/ML VIAL IV PRN (11:03)
--- NOTE | 2021-05-31 13:13 | P.PN ---
Subjective Date of Service: 05/31/21 Chief Complaint: ABDOMEN PAIN Subjective: Improving HE IS STILL THE SAME. HE IS PASSING SOME GAS FROM BELOW. NGT CAME OUT ACCIDENTALLY. HE IS STILL NOT BETTER SO I ASKED NURSES TO PUT IT BACK IN. NGT WITH LIS DID NOT WORK NGT CAME OUT TWICE. DIFFICULT TO INSERT EVEN AFTER INSERTION HE KEPT ON HAVING ABDOMEN DISTENSION. DR. BABCOCK WILL TAKE HIM FOR SURGERY TODAY. SP SURGERY DAY 1. DOING WELL LOW URINE OUTPUT HEMATURIA FROM MOVING AROUND WITH GAINES. WHEN I SAW HIM THIS AM HE SQUATTING IN THE BED, UNCOMFORTABLE. GERD STABLE HE CAN GO TO FLOOR TODAY. HEMATURIA RESOLVING. Physical Examination - Vital Signs Temperature: 98.4 F Blood Pressure: 120/60 Pulse: 77 Respirations: 17 Pulse Ox (%): 98 - Physical Exam General: Oriented x3, Cachectic, Mild distress HEENT: Atraumatic, PERRLA, EOMI Neck: Supple, JVD not distended Respiratory: Clear to auscultation bilaterally, Normal air movement Cardiovascular: Regular rate/rhythm, Normal S1 S2 Gastrointestinal: Normal bowel sounds, No tenderness Musculoskeletal: No tenderness Integumentary: No rashes Neurological: Normal speech, Normal tone, Normal affect Lymphatics: No axilla or inguinal lymphadenopathy - Studies Medications List Reviewed: Yes Assessment And Plan - Current Problems (Diagnosis) (1) Small bowel obstruction Current Visit: Yes Status: Acute Plan: SP SURGERY St 2 DOING WELL STABLE. IV FLUIDS FOR LOW OUTPUT. STABLE FOR FLOOR. (2) COPD (chronic obstructive pulmonary disease) Current Visit: Yes Status: Chronic Plan: CURRENT STABLE. NEBS PRN. SMOKES AND NOT ABLE TO QUIT DESPITE MANY TRIALS AND MEDS. Qualifiers: COPD type: unspecified COPD Qualified Code(s): J44.9 - Chronic obstructive pulmonary disease, unspecified (3) Smoker Current Visit: Yes Status: Acute (4) DJD (degenerative joint disease) Current Visit: Yes Status: Acute (5) Hematuria Current Visit: Yes Status: Acute Plan: MAINLY FROM GAINES DAMAGE I DON'T SUSPECT ANYTHING ELSE WILL FU AFTER REMOVAL OF GAINES. SHOULD RESOLVE.
[2021-06-01] MEDS: METRONIDAZOLE 500mg IVPB 500 MG/100 ML BAG IV SCH ×2 (00:50→10:11)
[2021-06-01 06:31] LABS: BUN Blood Urea Nitrogen 20 mg/dL (7-18); Bicarbonate 26 mmol/L (21-32); Glucose Level 102 mg/dL (74-106); Phosphorus 1.1 mg/dL (2.5-4.9); Potassium 3.9 mmol/L (3.5-5.1); Sodium Level 143 mmol/L (136-145)
[2021-06-01] MEDS: CEFOXITIN 1 GM in NA CHLORIDE 0.9% 50 ML IVPB SCH ×4 (06:48→23:25)
[2021-06-01] MEDS: NA CHLORIDE 0.9% 1,000 ML IV SCH ×2 (06:49→22:12)
[2021-06-01] MEDS: ENOXAPARIN 40 MG/0.4 ML SQ SCH (09:00)
[2021-06-01] MEDS ORDERED: POTASSIUM CL SA 10 MEQ TAB PO ONE (09:00)
[2021-06-01] MEDS ORDERED: POTASSIUM PHOS IN 0.9 % NACL 15 MMOL/250 ML BAG IV ONE (09:00)
[2021-06-01] MEDS ORDERED: ONDANSETRON 4 MG/2 ML VIAL IV PRN (09:31)
--- NOTE | 2021-06-01 10:05 | P.PN ---
Subjective Date of Service: 06/01/21 Chief Complaint: ABDOMEN PAIN Subjective: No new changes HE IS NOT HAVING ANY PASSAGE OF GAS OR BM. HE IS LAYING IN BED, ABLE TO WALK. HAS NO NEW ISSUES. HEMAUTURIA IS IMPROVING. . Review of Systems 10-point ROS is otherwise unremarkable Physical Examination - Vital Signs Temperature: 97.0 F Blood Pressure: 141/65 Pulse: 102 Respirations: 22 Pulse Ox (%): 100 - Physical Exam General: Oriented x3, Mild distress HEENT: Atraumatic, PERRLA, EOMI Neck: Supple, JVD not distended Respiratory: Clear to auscultation bilaterally, Normal air movement Cardiovascular: Regular rate/rhythm, Normal S1 S2 Gastrointestinal: Absent bowel sounds, Distended, Tenderness Musculoskeletal: No tenderness Integumentary: No rashes Neurological: Normal speech, Normal tone, Normal affect Lymphatics: No axilla or inguinal lymphadenopathy - Studies Medications List Reviewed: Yes Assessment And Plan - Current Problems (Diagnosis) (1) Small bowel obstruction Current Visit: Yes Status: Acute Plan: SP SURGERY NO BS YET. NO PASSAGE OF GAS YET NO BM YET. SHOULD START IN A FEW DAYS. (2) COPD (chronic obstructive pulmonary disease) Current Visit: Yes Status: Chronic Plan: CURRENT STABLE. NEBS PRN. SMOKES AND NOT ABLE TO QUIT DESPITE MANY TRIALS AND MEDS. Qualifiers: COPD type: unspecified COPD Qualified Code(s): J44.9 - Chronic obstructive pulmonary disease, unspecified (3) Smoker Current Visit: Yes Status: Acute (4) DJD (degenerative joint disease) Current Visit: Yes Status: Acute (5) Hematuria Current Visit: Yes Status: Acute Plan: MAINLY FROM GAINES DAMAGE I DON'T SUSPECT ANYTHING ELSE WILL FU AFTER REMOVAL OF GAINES. SHOULD RESOLVE. IS GRADUALLY IMPROVING OFF GAINES. HE MOVED A WHOLE LOT WITH GAINES SO INJURED URETHRA.
[2021-06-01] MEDS: PANTOPRAZOLE 40 MG INJ IVP SCH ×2 (10:12→21:40)
--- NOTE | 2021-06-01 12:58 | PN ---
Date of Progress Note: 06/01/2021 Subjective: The patient has not had a bowel movement or passing any gas. NG tube put out 200 cc las t shift. He is voiding well. Objective: Vital Signs: His vitals are stable. He is afebrile. Abdomen: Soft, distended. Hypoactive bowel sounds. No peritonitis. No tenderness. Extremities: Wound is clean, dry, and intact. Assessment: Status post exploratory laparotomy, small bowel resection for small bowel obstruction. Recommendations: Continue n.p.o., NG tube, IV fluids, IV antibiotics, encourage ambulation, and jimi ntive spirometry, and ice chips. /MODL Voice ID: [id number] Report ID: [id number]
[2021-06-01 14:14] LABS: Magnesium 2.5
[2021-06-01] MEDS: HYDROMORPHONE HCL 1 MG/ML INJ IV PRN ×2 (16:35→21:40)
[2021-06-02] MEDS: NA CHLORIDE 0.9% 1,000 ML IV SCH ×3 (02:01→22:01)
[2021-06-02] MEDS: HYDROMORPHONE HCL 1 MG/ML INJ IV PRN ×3 (04:31→18:29)
[2021-06-02] MEDS: CEFOXITIN 1 GM in NA CHLORIDE 0.9% 50 ML IVPB SCH ×3 (05:12→17:04)
[2021-06-02 06:34] LABS: BUN Blood Urea Nitrogen 22 mg/dL (7-18); Bicarbonate 22 mmol/L (21-32); Glucose Level 101 mg/dL (74-106); Potassium 3.4 mmol/L (3.5-5.1); Sodium Level 146 mmol/L (136-145)
[2021-06-02 06:39] LABS: Phosphorus 0.9 mg/dL (2.5-4.9)
[2021-06-02] MEDS: ENOXAPARIN 40 MG/0.4 ML SQ SCH (07:22)
[2021-06-02] MEDS ORDERED: POTASSIUM PHOS 30 MM in NA CHLORIDE 0.9% 500 ML IV ONE (08:00)
[2021-06-02] MEDS: PANTOPRAZOLE 40 MG INJ IVP SCH ×2 (08:51→20:31)
[2021-06-02] MEDS ORDERED: PHENOL 1.4% ORAL SPRAY 180ML MM PRN (10:03)
--- NOTE | 2021-06-02 10:42 | P.PN ---
Subjective Date of Service: 06/02/21 Chief Complaint: SP SURGERY Subjective: Improving HE IS NOT HAVING ANY PASSAGE OF GAS OR BM. HE IS LAYING IN BED, ABLE TO WALK. HAS NO NEW ISSUES. HEMAUTURIA IS IMPROVING. . HE HAS NOT HAD BM YET. HE HAS NO PASSAGE OF GAS YET. FEELS STABLE. Review of Systems 10-point ROS is otherwise unremarkable General: Weakness, Malaise Gastrointestinal: Abdominal Pain Physical Examination - Vital Signs Temperature: 97.5 F Blood Pressure: 134/64 Pulse: 74 Respirations: 18 Pulse Ox (%): 96 - Physical Exam General: Acute distress, Mild distress HEENT: Atraumatic, PERRLA, EOMI Neck: Supple, JVD not distended Respiratory: Clear to auscultation bilaterally, Normal air movement Cardiovascular: Regular rate/rhythm, Normal S1 S2 Gastrointestinal: Non-distended, Absent bowel sounds, Tenderness Musculoskeletal: No tenderness Integumentary: No rashes Neurological: Normal speech, Normal tone, Normal affect Lymphatics: No axilla or inguinal lymphadenopathy - Studies Medications List Reviewed: Yes Assessment And Plan - Current Problems (Diagnosis) (1) Small bowel obstruction Current Visit: Yes Status: Acute Plan: SP SURGERY NO BS YET. NO PASSAGE OF GAS YET NO BM YET. SHOULD START IN A FEW DAYS. DR. BABCOCK IS TRYING TO GIVE HIM TRIAL TO REMOVE NGT. (2) COPD (chronic obstructive pulmonary disease) Current Visit: Yes Status: Chronic Plan: CURRENT STABLE. NEBS PRN. SMOKES AND NOT ABLE TO QUIT DESPITE MANY TRIALS AND MEDS. Qualifiers: COPD type: unspecified COPD Qualified Code(s): J44.9 - Chronic obstructive pulmonary disease, unspecified (3) Smoker Current Visit: Yes Status: Acute (4) DJD (degenerative joint disease) Current Visit: Yes Status: Acute (5) Hematuria Current Visit: Yes Status: Acute Plan: MAINLY FROM GAINES DAMAGE I DON'T SUSPECT ANYTHING ELSE WILL FU AFTER REMOVAL OF GAINES. SHOULD RESOLVE. IS GRADUALLY IMPROVING OFF GAINES. HE MOVED A WHOLE LOT WITH GAINES SO INJURED URETHRA. (6) Hypokalemia Current Visit: Yes Status: Acute Plan: REPLACE K AND PHOS. (7) Hypophosphatemia Current Visit: Yes Status: Acute
--- NOTE | 2021-06-02 10:52 | PN ---
Date of Progress Note: 06/02/2021 Subjective: The patient is awake, alert. No complaints. Vital signs are stable. He is afebrile. Feels a little bit rumbling in his stomach, but he denies any bowel movements; however, his gastric d rainage from his NG tube is markedly diminished to down to between 10 and 50 cc per shift. Objective: His abdomen is soft, nondistended. Positive bowel sounds. Laboratory Data: Pending. Assessment: Status post exploratory laparotomy for small bowel obstruction. Recommendations: We will clamp his NG tube and we will start him on sips of clear liquids, encourage ambulation with PT, incentive spirometry, and continue current management. /MODL Voice ID: [id number] Report ID: [id number]
[2021-06-02] MEDS ORDERED: KCL 20 MEQ/100 mL IVPB 20 MEQ/100 ML BAG IV SCH (14:00)
[2021-06-02] MEDS ORDERED: POTASSIUM PHOS 20 MEQ in NA CHLORIDE 0.9% 250 ML IV SCH (18:00)
[2021-06-02] MEDS ORDERED: POTASSIUM PHOS IN 0.9 % NACL 15 MMOL/250 ML BAG IV ONE (21:00)
[2021-06-02] MEDS ORDERED: POTASS/SODIUM PHOSPHATE 1 PKT POWD.PACK PO SCH (21:00)
[2021-06-02] MEDS: LORazepam 2 MG/ML VIAL IV PRN (21:01)
[2021-06-03] MEDS: CEFOXITIN 1 GM in NA CHLORIDE 0.9% 50 ML IVPB SCH ×2 (00:27→06:02)
[2021-06-03] MEDS: HYDROMORPHONE HCL 1 MG/ML INJ IV PRN ×2 (02:30→06:29)
[2021-06-03 06:16] LABS: Absolute Lymphocytes (CBC) 0.8 K/uL (0.7-4.9); Hematocrit 37.8 % (39.6-49.0); Lymphocytes % 8.7 % (15.3-44.8)
[2021-06-03 06:23] LABS: BUN Blood Urea Nitrogen 16 mg/dL (7-18); Bicarbonate 26 mmol/L (21-32); Glucose Level 106 mg/dL (74-106); Potassium 3.8 mmol/L (3.5-5.1); Sodium Level 144 mmol/L (136-145)
[2021-06-03 06:34] LABS: Phosphorus 1.9 mg/dL (2.5-4.9)
[2021-06-03] MEDS ORDERED: POTASSIUM PHOS IN 0.9 % NACL 15 MMOL/250 ML BAG IV ONE (08:30)
[2021-06-03] MEDS: ENOXAPARIN 40 MG/0.4 ML SQ SCH (09:00)
--- NOTE | 2021-06-03 09:25 | RAD REPORT ---
EXAM DESCRIPTION: RAD - Abdomen W Erect - 06/03/2021 8:31 am CLINICAL HISTORY: oozing incision site Pain COMPARISON: Abdomen W Erect dated 05/28/2021 FINDINGS: Anterior midline skin mini are noted. Contrast is present in the colon. There are sever al dilated small bowel loops present in the upper abdomen which could represent an adynamic ileus. En teric tube tip is in the stomach.
[2021-06-03] MEDS: PANTOPRAZOLE 40 MG INJ IVP SCH (10:03)
[2021-06-03] MEDS: NA CHLORIDE 0.9% 1,000 ML IV SCH (10:03)
--- NOTE | 2021-06-03 11:13 | PN ---
Date of Progress Note: 06/03/2021 Subjective: I was contacted by the nurse this morning that the patient had a coughing spell and had some brownish discharge on the bottom of his dressing. I advised the nurse to reinforce the dressing and get an abdominal x-ray. The patient's NGT was clamped yesterday and he was started on sips of clear liquids. Last night, his residual was 120 cc, so we made him n.p.o. last night and advised the nurse to place the NG tube to suction again. This morning on my arrival, the patient was awake and alert and when I examined the dressing, there was green bilious drainage at the bottom of the dressing. This was an indication of dehiscence with probable bowel perforation. I advised the patient in detail that the importance of urgent intervention to take care of this problem with sepsis setting in, if we wait; however, the patient had some difficulties with his previous surgeries in the past and had to be reoperated on and this time he wanted to a specialist. Advised him that there were no colorectal or abdominal surgery specialists here and most general surgeons do take care of this and I was willing to take care of this problem; however, he insisted on being transferred to another facility. I advised the head nurse in the room to initiate the transfer and I contacted Dr. Hester. I explained to him the situation and he agreed that the patient needs urgent interventions and he said he would call the patient and discuss the case with the patient to see if we can operate on him as soon as possible. After his discussion with the patient, I was contacted by the head nurse on the floor that the patient will agree for surgery here if transfer is not an issue or not accepted by in a couple of hours, so the plan right now is to give him about an hour or 2 and if the patient does not have any transfer in progress, then we will proceed with exploratory laparotomy, bowel resection, possible colostomy. The risks, benefits, alternatives of this procedure were discussed in great detail in the presence of the nursing staff to the patient. He understands and agreed. Objective: Vital Signs: Currently are stable. He is afebrile. Abdomen: Distended. Dressing has greenish discharge at the bottom and there is tenderness. Laboratory Data: Shows white count of 8.7. There is slight left shift at 75.5. His chemistry is essentially unremarkable, except for a low phosphorus which is being replaced. Assessment: Status post small bowel resection for small bowel obstruction, now with likely dehiscence and evisceration with possible bowel perforation, which is most likely. Recommendations: We will await the results of the transfer process and if it is not progressing well, we will take the patient to the OR here. If we can get patient transferred soon, we will do that per the patient's request. /SOREN Voice ID: [id number] Report ID: [id number] MTDD
[2021-06-03 12:37] VITALS: BP 138/65; TEMP 98.5
[2021-06-03 13:00] LABS: Magnesium 1.7
[2021-06-03 14:20] LABS: Magnesium 1.9
[2021-06-03 15:19] VITALS: O2SAT 98
--- NOTE | 2021-06-03 20:55 | P.PN ---
Subjective Date of Service: 06/03/21 Chief Complaint: SP SURGERY Subjective: C/O voiced, Worsening THIS AM I SAW HIM. HE HAS DRESSING WITH FECAL SOILING. HE HAS HAD DEHISCENCE OF THE WOUND OVERNIGHT AND DR. BABCOCK HAS BEEN CALLED. HE ORDERED STAT X .RAY. I CALLED HIM ALSO TO MAKE SURE HE IS AWARE AND TAKES HIM FOR SURGERY AGAIN. DR. BABCOCK IS READY TO REDO SURGERY BUT PATIENT REFUSED. HE WANTED TO BE TRANSFERRED TO A BIGGER FACILITY. DR. BABCOCK CALLED AND TALKED TO [facility] [place], SURGEON AND THEY SAID THERE ARE NO BEDS. I TALKED TO PATIENT TO TRY TO CONVINCE HIM TO GET SURGERY DONE HERE AGAIN BUT HE REFUSED. [facility]UR[facility]'S RE[facility] AND THEY ALSO HAD NO BEDS. I CALLED PATIENT ABOUT 3 TIMES AND TOLD HIM THAT HE CAN GET SEPTIC AND IF HE DOES NOT LET DR. BABCOCK TAKE CARE OF ACUTE ABDOMEN. HE REFUSED. HE SAID HIS SISTER IS WORKING ON GETTING HIM BED IN [place]. I ASKED FOR HER NUMBER AND HE SAID NOT TO TRY TO HAVE HER CONVINCE HIM FOR SURGERY HERE HE IS NOT GOING TO DO IT. HE LATER HAD SOMEONE PICK HIM UP FROM HERE. HE SIGNED AGAINST [facility] AND WAS DRIVEN TO [place] BY A FRIEND OR FAMILY. Physical Examination - Vital Signs Temperature: 98.5 F Blood Pressure: 138/65 Pulse: 77 Respirations: 16 Pulse Ox (%): 93 - Studies Medications List Reviewed: Yes Assessment And Plan - Current Problems (Diagnosis) (1) Small bowel obstruction Status: Acute Plan: SP SURGERY NO BS YET. NO PASSAGE OF GAS YET NO BM YET. SHOULD START IN A FEW DAYS. DR. BABCOCK IS TRYING TO GIVE HIM TRIAL TO REMOVE NGT. (2) COPD (chronic obstructive pulmonary disease) Status: Chronic Plan: CURRENT STABLE. NEBS PRN. SMOKES AND NOT ABLE TO QUIT DESPITE MANY TRIALS AND MEDS. Qualifiers: COPD type: unspecified COPD Qualified Code(s): J44.9 - Chronic obstructive pulmonary disease, unspecified (3) Smoker Status: Acute (4) DJD (degenerative joint disease) Status: Acute (5) Hematuria Status: Acute Plan: MAINLY FROM GAINES DAMAGE I DON'T SUSPECT ANYTHING ELSE WILL FU AFTER REMOVAL OF GAINES. SHOULD RESOLVE. IS GRADUALLY IMPROVING OFF GAINES. HE MOVED A WHOLE LOT WITH GAINES SO INJURED URETHRA. (6) Hypokalemia Status: Acute Plan: REPLACE K AND PHOS. (7) Hypophosphatemia Status: Acute
--- NOTE | 2021-06-03 20:59 | P.DS ---
Admission Date: 05/27/21 Discharge Date: 06/03/21 Disposition: AMA-LEFT AGAINST MEDICAL ADVIC Discharge Condition: SERIOUS Reason for Admission: SP SURGERY - Problems (1) Small bowel obstruction Status: Acute (2) COPD (chronic obstructive pulmonary disease) Status: Chronic Qualifiers: COPD type: unspecified COPD Qualified Code(s): J44.9 - Chronic obstructive pulmonary disease, unspecified (3) Smoker Status: Acute (4) DJD (degenerative joint disease) Status: Acute (5) Hematuria Status: Acute (6) Hypokalemia Status: Acute (7) Hypophosphatemia Status: Acute Brief History of Present Illness: MR. [place] HAS RECURRENT BOWEL OBSTRUCTION WITH PREVIOUS HISTORY OF HTN, DJD, COPD HE COMES ONE MORE TIME WITH ABDOMNEN PAIN AND DISTENSION. HE HAS BOWEL OBSTRUCTION ON CT SCAN. I ASKED BIZTALK DEVELOPER TO DO NGT WITH LIS AND CONSULT SURGEON. HE MAY RECOVER WITHOUT SURGERY. Hospital Course: THIS AM I SAW HIM AT ABOUT 8.. HE HAS DRESSING WITH FECAL SOILING. HE HAS HAD DEHISCENCE OF THE WOUND OVERNIGHT AND DR. BABCOCK HAS BEEN CALLED. HE ORDERED STAT X .RAY. I CALLED HIM ALSO TO MAKE SURE HE IS AWARE AND TAKES HIM FOR SURGERY AGAIN. DR. BABCOCK IS READY TO REDO SURGERY BUT PATIENT REFUSED. HE WANTED TO BE TRANSFERRED TO A BIGGER FACILITY. DR. BABCOCK CALLED AND TALKED TO [facility] [place], SURGEON AND THEY SAID THERE ARE NO BEDS. I TALKED TO PATIENT TO TRY TO CONVINCE HIM TO GET SURGERY DONE HERE AGAIN BUT HE REFUSED. CHARGE NURSE CALLED [facility] PER PATIENT'S REQUEST AND THEY ALSO HAD NO BEDS. I CALLED PATIENT ABOUT 3 TIMES AND TOLD HIM THAT HE CAN GET SEPTIC AND IF HE DOES NOT LET DR. BABCOCK TAKE CARE OF ACUTE ABDOMEN. HE REFUSED. HE SAID HIS SISTER IS WORKING ON GETTING HIM BED IN [place]. I ASKED FOR HER NUMBER AND HE SAID NOT TO TRY TO HAVE HER CONVINCE HIM FOR SURGERY HERE HE IS NOT GOING TO DO IT. HE LATER HAD SOMEONE PICK HIM UP FROM HERE. HE SIGNED AGAINST MEDICAL ADVISE AND WAS DRIVEN TO [place] BY A FRIEND OR FAMILY. Vital Signs/Physical Exam: Temp Pulse Resp BP Pulse Ox 98.5 F 77 16 138/65 93 06/03/21 20:55 06/03/21 20:55 06/03/21 20:55 06/03/21 20:55 06/03/21 20:55 General: Oriented x3, Cachectic, Mild distress HEENT: Atraumatic, PERRLA, EOMI Neck: Supple, JVD not distended Respiratory: Clear to auscultation bilaterally, Normal air movement Cardiovascular: Regular rate/rhythm, Normal S1 S2 Gastrointestinal: Tenderness (POSTOP. FECAL SOILING OF THE BED AND WOUND.) Musculoskeletal: No tenderness Integumentary: No rashes Neurological: Normal speech, Normal tone, Normal affect Lymphatics: No axilla or inguinal lymphadenopathy Laboratory Data at Discharge: WBC 8.70 K/uL (4.3-10.9) D 06/03/21 05:55 Hgb 12.3 g/dL (13.6-17.9) L 06/03/21 05:55 Hct 37.8 % (39.6-49.0) L 06/03/21 05:55 Plt Count 228 K/uL (152-406) D 06/03/21 05:55 Sodium 144 mmol/L (136-145) 06/03/21 05:55 Potassium 3.8 mmol/L (3.5-5.1) 06/03/21 05:55 BUN 16 mg/dL (7-18) 06/03/21 05:55 Creatinine 0.58 mg/dL (0.55-1.3) 06/03/21 05:55 Glucose 106 mg/dL (74-106) 06/03/21 05:55 Phosphorus 1.9 mg/dL (2.5-4.9) L 06/03/21 05:55 Magnesium 1.9 D 06/03/21 05:55 Total Bilirubin 0.5 mg/dL (0.2-1.0) 05/27/21 09:32 AST 18 U/L (15-37) 05/27/21 09:32 ALT 32 U/L (12-78) 05/27/21 09:32 Alkaline Phosphatase 123 U/L (45-117) H 05/27/21 09:32 Lipase 58 U/L (73-393) L 05/27/21 09:32 Home Medications: ALPRAZolam [Xanax*] 0.5 mg PO BEDTIME PRN 05/27/21 Aspirin [Aspirin EC] 81 mg PO DAILY 05/27/21 Atorvastatin Calcium [Lipitor*] 20 mg PO DAILY AFTER SUPPER 05/27/21 Calcium Carb/Vitamin D3/Vit K1 [Calcium + D Soft Chewable Tab] 1 tab PO DAILY 05/27/21 Famotidine [Pepcid*] 20 mg PO DAILY 05/27/21 Fluticasone Propionate [Flonase Allergy Relief] 1 spray DARYN DAILY 05/27/21 Gabapentin [Neurontin*] 100 mg PO DAILY 05/27/21 Gabapentin [Neurontin*] 200 mg PO BEDTIME 05/27/21 Melatonin 5 mg PO BEDTIME 05/27/21 Multivit-Min/Folic Acid/Vit K1 [Multi For Him Softgel] 1 cap PO DAILY 05/27/21 Tizanidine [Zanaflex*] 4 mg PO BEDTIME PRN 05/27/21 Ubidecarenone [Co Q-10] 10 mg PO DAILY 05/27/21 Venlafaxine HCl [Venlafaxine HCl ER] 37.5 mg PO DAILY 05/27/21 Followup: Solomon Hester MD [Primary Care Provider] -
== END 2021-06-03 13:04 | disposition left against medical advice (07) | DRG 330 ==
LOC: ER 09:14 → ERHOLD 13:27 → 2ND 16:01 → 3RD-ICU 05-29 18:42 → 2ND 05-31 20:30
PROVIDERS: ADMIT Internal Medicine; ATTEND Internal Medicine
PROC: 0DN80ZZ Release Small Intestine, Open Approach (ICD-10-PCS; 2021-05-29)
PROC: 0DB80ZZ Excision of Small Intestine, Open Approach (ICD-10-PCS; principal; 2021-05-29 15:00)
DX: K56.52 Intestinal adhesions [bands] with complete obstruction (principal); R64 Cachexia; T81.32XA Disruption of internal operation (surgical) wound, not elsewhere classified, initial encounter; K91.89 Other postprocedural complications and disorders of digestive system; J44.9 Chronic obstructive pulmonary disease, unspecified; R31.9 Hematuria, unspecified; F17.210 Nicotine dependence, cigarettes, uncomplicated; M19.90 Unspecified osteoarthritis, unspecified site; E87.6 Hypokalemia; E83.39 Other disorders of phosphorus metabolism; K21.9 Gastro-esophageal reflux disease without esophagitis; Z20.822 Contact with and (suspected) exposure to COVID-19; Z23 Encounter for immunization; Z53.29 Procedure and treatment not carried out because of patient's decision for other reasons; Z68.23 Body mass index [BMI] 23.0-23.9, adult
CPT/HCPCS: 36415; 71045; 74018; 74019; 74177; 74250; 76705; 80048; 80076; 81003; 81015; 83690; 83735; 84100; 84132; 85014; 85018; 85025; 87086; 87088; 88307; 90471; 90732; 94010; 96365; 96366; 96375; 97116; 97161; 97530; 99285; C9113; J0330; J0694; J1100; J1170; J1650; J2175; J2405; J2550; J2704; J2710; J3010; J7030; J7040; J7050; J7120; Q2035; Q9967; U0003